=== PATIENT | male | born 1950 | race Caucasian/White ===

== ENCOUNTER 2020-06-04 08:44 | Inpatient (IN) | payer MEDICARE, MEDICAID ==
[2020-06-04] VITALS (19 sets, daily range): BP systolic 102–126; BP diastolic 50–78
[~2020-06-04] VITALS: Ht 185.4 cm; Wt 50.5 kg
--- NOTE | 2020-06-04 09:04 | NUR ---
Patient A&Ox 4. Patient given 4mg Morphine by [facility] right before transported. Patient resting comfortable. Awaiting MD arrival.
[2020-06-04] MEDS ORDERED: MONT10TA26 PO (09:36)
[2020-06-04] MEDS ORDERED: SERT100T PO (09:36)
[2020-06-04] MEDS ORDERED: PRED5TAB PO (09:36)
[2020-06-04] MEDS ORDERED: ATR0.5NEB NEB (09:36)
[2020-06-04] MEDS ORDERED: FLUT1DIS20 INH (09:36)
[2020-06-04] MEDS ORDERED: ASPI81TA52 PO (09:36)
[2020-06-04] MEDS ORDERED: ALB0.5UD IH (09:36)
[2020-06-04] MEDS ORDERED: ALBU18HF2 INH (09:36)
[2020-06-04] MEDS ORDERED: HYDROcodone/acetaminophen 5mg/325mg tablet PO PRN (10:25)
[2020-06-04] MEDS ORDERED: magnesium hydroxide 30ml (MOM) UD suspension PO PRN (10:25)
[2020-06-04] MEDS ORDERED: mag hydrox/Alum hydrox/simeth 30ml oral suspension PO PRN (10:25)
[2020-06-04] MEDS ORDERED: ondansetron/PF 4mg/2ml inj IV PRN (10:25)
[2020-06-04] MEDS ORDERED: acetaminophen 325mg tablet PO PRN ×2 (10:25)
[2020-06-04] MEDS ORDERED: morphine 2 MG/ML inj. syringe IV PRN (10:25)
[2020-06-04] MEDS ORDERED: albuterol 2.5 MG/3 ML nebule NEB PRN (10:30)
[2020-06-04] MEDS: dextrose 5%-1/2 normal saline 1,000 ML IV SCH ×2 (11:30→18:37)
--- NOTE | 2020-06-04 12:00 | NUR ---
Patient to GI lab.
[2020-06-04] MEDS ORDERED: DILT-94 PO (12:31)
[2020-06-04] MEDS ORDERED: levoFLOXACIN-Levaquin 500mg/D5 100 ML IV ONE (12:39)
[2020-06-04] MEDS ORDERED: iohexol 300 MG/1 ML 50ml polymer ONE (12:39)
[2020-06-04] MEDS ORDERED: fentaNYL/PF 50MCG/1 ML 2ML syringe ONE (12:39)
[2020-06-04] MEDS ORDERED: LIDOcaine Viscous 15ml cup ONE (12:39)
[2020-06-04] MEDS ORDERED: MIDAZolam 5mg/5ml vial ONE (12:39)
[2020-06-04] MEDS ORDERED: glucagon, human recombinant 1mg kit ONE (12:39)
--- NOTE | 2020-06-04 12:41 | NUR ---
Called down ER to receive report. Was notified that patient was in GI lab and that GI lab will call up to floor for report. [facility] primary RN "too busy" to give report at this time.
--- NOTE | 2020-06-04 13:04 | NUR ---
Received report from ED RN, Zeus @ 1300. Awaiting for patient to come up from GI lab. Patient will be placed in room 45B.
[2020-06-04] MEDS ORDERED: ipratropium 0.5 MG/2.5ML nebule NEB SCH (14:00)
[2020-06-04] MEDS ORDERED: albuterol 2.5 MG/3 ML nebule NEB SCH (15:00)
[2020-06-04] MEDS ORDERED: naloxone 0.4 mg/ml inj ONE (17:29)
[2020-06-04] MEDS ORDERED: flumazenil 0.1 mg/ml inj. IV ONE (17:29)
--- NOTE | 2020-06-04 17:58 | NUR ---
Received report from MOUNA Ledbetter. Awaiting patient arrival to room 345b.
--- NOTE | 2020-06-04 18:33 | NUR ---
Received patient to room 345B via gurney accompanied by x2 RN. VSS.
--- NOTE | 2020-06-04 18:37 | NUR ---
Problems reprioritized. Patient report given, questions answered & plan of care reviewed with MOUNA Hudson. Patient appears to be resting coomfortably with eyes closed, respirations even and unlabored. Call light in reach. Bed low and lokced.
[2020-06-04] MEDS: ipratropium/albuterol 3ml nebule NEB SCH (20:45)
[2020-06-04] MEDS: budesonide 0.5mg/2ml UD nebule IH SCH (20:45)
[2020-06-05] VITALS: BP 102/77
[2020-06-05] MEDS: ipratropium/albuterol 3ml nebule NEB SCH ×4 (02:13→19:52)
[2020-06-05] MEDS: dextrose 5%-1/2 normal saline 1,000 ML IV SCH ×2 (03:50→16:06)
[2020-06-05 04:00] VITALS: BP 128/88
[2020-06-05 06:02] LABS: BASOPHILS # (AUTO) 0.1 X10'3 (0-0.2); BASOPHILS % (AUTO) 0.3 % (0-1); EOSINOPHILS % (AUTO) 0 % (0-6); HEMATOCRIT 42.4 % (42.0-52.0); HEMOGLOBIN 13.8 g/dl (14.0-17.9); LYMPHOCYTES # (AUTO) 0.3 X10'3 (1.1-4.8); LYMPHOCYTES % (AUTO) 1.1 % (21-51); MEAN CORPUSCULAR HEMOGLOBIN 30.5 PG (27.0-31.0); MEAN CORPUSCULAR HGB CONC 32.5 g/dL (33.0-36.5); MEAN CORPUSCULAR VOLUME 93.6 FL (78-98); MEAN PLATELET VOLUME 8.7 FL (7.4-10.4); MONOCYTES # (AUTO) 2.3 X10'3 (0-0.9); MONOCYTES % (AUTO) 8.6 % (2-12); NEUTROPHILS # (AUTO) 24.1 X10'3 (1.8-7.7); PLATELET COUNT 176 X10'3 (140-440); RED BLOOD COUNT 4.53 X10'6 (4.70-6.10); RED CELL DISTRIBUTION WIDTH 15.6 % (11.5-14.5)
[2020-06-05 06:11] LABS: ALANINE AMINOTRANSFERASE 123 U/L (12-78); ALBUMIN 2.5 G/DL (3.4-5.0); ALKALINE PHOSPHATASE 472 IU/L (46-116); ANION GAP 5 (8-16); ASPARTATE AMINO TRANSFERASE 109 U/L (10-37); BILIRUBIN,TOTAL 8.7 MG/DL (0.1-1.0); BLOOD UREA NITROGEN 22 MG/DL (7-18); BUN/CREATININE RATIO 26.2 (5.4-32.0); CALCIUM 8.5 MG/DL (8.5-10.1); CHLORIDE 104 MMOL/L (99-107); CREATININE 0.84 MG/DL (0.60-1.10); GLUCOSE 115 MG/DL (70-104); POTASSIUM 4.4 MMOL/L (3.5-5.1); SODIUM 138 MMOL/L (135-145); TOTAL CARBON DIOXIDE 29.1 MMOL/L (24-32); eGFR 90 ML/MIN
[2020-06-05 06:22] LABS: WHITE BLOOD COUNT 26.7 X10'3 (4.5-11.0)
[2020-06-05 06:33] LABS: ALBUMIN/GLOBULIN RATIO 0.9 (1.1-1.5); TOTAL PROTEIN 5.4 G/DL (6.4-8.2)
--- NOTE | 2020-06-05 06:33 | NUR ---
Problems reprioritized. Patient report given, questions answered & plan of care reviewed with Cristin FREIRE. Addendum: 06/05/20 at 0633 by Becca Wheatley RN Amended: Links added.
--- NOTE | 2020-06-05 07:00 | NUR ---
PAGER ID: [phone] MESSAGE: Reynaldo Pulliam 345B : JOSE RAFAEL .critical WBC 26.7 thanks!
[2020-06-05 07:10] LABS: TOTAL CELLS COUNTED 100
[2020-06-05 07:11] LABS: ACANTHOCYTES 2+; ANISOCYTOSIS 1+; PLATELET ESTIMATE NORMAL
[2020-06-05 07:35] VITALS: BP 92/57
[2020-06-05] MEDS: sertraline 50mg tablet PO SCH (08:00)
[2020-06-05] MEDS: montelukast 10mg tablet PO SCH (08:00)
[2020-06-05] MEDS: predniSONE 5mg tablet PO SCH (08:00)
[2020-06-05] MEDS: aspirin 81mg tablet.DR PO SCH (08:00)
[2020-06-05] MEDS: budesonide 0.5mg/2ml UD nebule IH SCH ×2 (08:03→19:52)
[2020-06-05 08:25] VITALS: BP 101/70
[2020-06-05] MEDS ORDERED: albuterol 2.5 MG/3 ML nebule NEB PRN (09:15)
--- NOTE | 2020-06-05 09:15 | NUR ---
Page to Respiratory.. 345B Reynaldo Pulliam: RT order update. hes been changed to q4h. thanks!
[2020-06-05] MEDS: HYDROcodone/acetaminophen 10/325mg tab PO PRN ×2 (09:21→18:09)
[2020-06-05 12:35] VITALS: BP 104/64
--- NOTE | 2020-06-05 15:42 | NUR ---
Malnutrition consult: Pt reports 24-33 lb wt loss with decreased appetite per malnutrition risk screen with RN. Per H&P pt reports roughly 40 lb wt loss in unknown time frame. Pt seen at bedside reports previously weighing 165 lbs with weight "tapering off" over the last four years, current scaled weight is 111 lbs. This is non-significant wt loss of 33% in four years. Pt reports low appetite with poor PO intake over the last 1.5 weeks. Pt denies food preferences at this time and states he is uninterested in discussing food at this time, though pt does agree to Ensure Enlive TID. ONS to be sent pending MD approval in EMR. Pt denies desire for ONS continuation following discharge so declines ONS coupons at this time. Pt with visible severe fat and muscle wasting meeting criteria for malnutrition. Pt denies food allergies or difficulty chewing/swallowing. 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 LBM 06/03. Pt provided with RD contact information and encouraged to reach out. Will continue to follow closely. Recommendations: 1) Continue regular diet 2) Chocolate Ensure Enlive TID, pending MD approval in EMR 3) Monitor for s/s refeeding 4) Bowel care per rx 5) Scaled weights per rx Addendum: 06/05/20 at [address] Amended: Links added.
[2020-06-05 18:00] VITALS: BP 102/69
--- NOTE | 2020-06-05 18:25 | NUR ---
Problems reprioritized. Patient report given, questions answered & plan of care reviewed with MOUNA Pepe.
--- NOTE | 2020-06-05 18:30 | NUR ---
Patient in room [facility] 349. I have received report from KARRI FREIRE and had the opportunity to ask questions and assume patient care.
[2020-06-05] MEDS: levoFLOXACIN 500mg tablet PO SCH (20:10)
[2020-06-06] VITALS: BP 102/68
[2020-06-06] MEDS: dextrose 5%-1/2 normal saline 1,000 ML IV SCH ×2 (02:25→05:24)
[2020-06-06] MEDS: ipratropium/albuterol 3ml nebule NEB SCH ×4 (03:01→19:51)
[2020-06-06 05:10] LABS: BASOPHILS # (AUTO) 0.1 X10'3 (0-0.2); BASOPHILS % (AUTO) 0.4 % (0-1); EOSINOPHILS % (AUTO) 0 % (0-6); HEMATOCRIT 41.1 % (42.0-52.0); HEMOGLOBIN 13.3 g/dl (14.0-17.9); LYMPHOCYTES # (AUTO) 0.3 X10'3 (1.1-4.8); LYMPHOCYTES % (AUTO) 0.8 % (21-51); MEAN CORPUSCULAR HEMOGLOBIN 29.8 PG (27.0-31.0); MEAN CORPUSCULAR HGB CONC 32.4 g/dL (33.0-36.5); MEAN CORPUSCULAR VOLUME 92.2 FL (78-98); MEAN PLATELET VOLUME 9.2 FL (7.4-10.4); MONOCYTES # (AUTO) 2.6 X10'3 (0-0.9); MONOCYTES % (AUTO) 7.6 % (2-12); NEUTROPHILS # (AUTO) 30.7 X10'3 (1.8-7.7); NEUTROPHILS % (AUTO) 91.2 % (42-75); PLATELET COUNT 188 X10'3 (140-440); RED BLOOD COUNT 4.46 X10'6 (4.70-6.10); RED CELL DISTRIBUTION WIDTH 15.8 % (11.5-14.5)
[2020-06-06 05:13] LABS: WHITE BLOOD COUNT 33.7 X10'3 (4.5-11.0)
[2020-06-06 05:29] LABS: ALANINE AMINOTRANSFERASE 114 U/L (12-78); ALBUMIN 2.2 G/DL (3.4-5.0); ALKALINE PHOSPHATASE 556 IU/L (46-116); ANION GAP 8 (8-16); ASPARTATE AMINO TRANSFERASE 132 U/L (10-37); BILIRUBIN,TOTAL 10.2 MG/DL (0.1-1.0); BLOOD UREA NITROGEN 34 MG/DL (7-18); BUN/CREATININE RATIO 20.5 (5.4-32.0); CALCIUM 8.5 MG/DL (8.5-10.1); CHLORIDE 100 MMOL/L (99-107); CREATININE 1.66 MG/DL (0.60-1.10); GLUCOSE 103 MG/DL (70-104); SODIUM 134 MMOL/L (135-145); TOTAL CARBON DIOXIDE 25.6 MMOL/L (24-32); eGFR 41 ML/MIN
--- NOTE | 2020-06-06 05:30 | NUR ---
PAGED DR. BARTON AND TALKED TO HER, WAS INFORMED OF CRITICAL WBC 33.7 NO NEW ORDERS MADE.
[2020-06-06 05:31] LABS: ALBUMIN/GLOBULIN RATIO 0.8 (1.1-1.5); POTASSIUM 4.3 MMOL/L (3.5-5.1)
[2020-06-06 05:37] LABS: ANISOCYTOSIS 1+; PLATELET ESTIMATE NORMAL; TOTAL CELLS COUNTED 100
[2020-06-06 05:38] LABS: BURR CELLS 2+
--- NOTE | 2020-06-06 06:35 | NUR ---
Problems reprioritized. Patient report given, questions answered & plan of care reviewed with TAYLOR FREIRE.
--- NOTE | 2020-06-06 06:55 | NUR ---
Patient in room [facility] 349. I have received report from MOUNA Pepe and had the opportunity to ask questions and assume patient care.
[2020-06-06 08:00] VITALS: BP 94/63
[2020-06-06] MEDS: aspirin 81mg tablet.DR PO SCH (08:20)
[2020-06-06] MEDS: montelukast 10mg tablet PO SCH (08:20)
[2020-06-06] MEDS: predniSONE 5mg tablet PO SCH (08:21)
[2020-06-06] MEDS: sertraline 50mg tablet PO SCH (08:21)
[2020-06-06] MEDS: HYDROcodone/acetaminophen 10/325mg tab PO PRN (08:21)
[2020-06-06] MEDS: albuterol 2.5 MG/3 ML nebule NEB PRN ×2 (08:27→11:40)
[2020-06-06] MEDS: budesonide 0.5mg/2ml UD nebule IH SCH ×2 (08:27→19:51)
[2020-06-06 11:00] VITALS: BP 95/62
[2020-06-06] MEDS: levoFLOXACIN 500mg tablet PO SCH (11:27)
[2020-06-06] MEDS ORDERED: LORazepam 2 mg/ml vial IV PRN (12:05)
[2020-06-06] MEDS ORDERED: morphine 10mg/0.5ml (conc. morphine) oral syringe PO PRN (12:05)
[2020-06-06] MEDS ORDERED: acetaminophen 325mg tablet PO PRN (12:05)
[2020-06-06 12:30] VITALS: BP 74/36
[2020-06-06] MEDS: morphine 2 MG/ML inj. syringe IV PRN ×2 (13:26→20:49)
--- NOTE | 2020-06-06 13:53 | NUR ---
PAGER ID: [phone] MESSAGE: Nery Med/surg [id number]. Pt: Shasha. RM: 349-A Pt on comfort care. Do you want any meds changes? thanks
--- NOTE | 2020-06-06 14:21 | NUR ---
Tel. New orders to stop all medication and labs and continue with comfort care meds only.
--- NOTE | 2020-06-06 18:15 | NUR ---
Patient in room [facility] 349. I have received report from Nery FREIRE and had the opportunity to ask questions and assume patient care.
--- NOTE | 2020-06-06 18:26 | NUR ---
Problems reprioritized. Patient report given, questions answered & plan of care reviewed with MOUNA Fernando. Pt on comfort care. medicated with morphine x1. Pt slept peacefully most of the afternoon. refused to eat. No void this shift.
[2020-06-06] MEDS ORDERED: sennosides/docusate sodium tablet PO SCH (20:00)
[2020-06-06] MEDS ORDERED: lactobacillus rhamnosus 10,000 MMU CELLS/CAPSULE PO SCH (20:00)
[2020-06-06] MEDS ORDERED: docusate sod 100mg capsule PO SCH (20:00)
[2020-06-07] VITALS: BP 74/36
[2020-06-07] MEDS: ipratropium/albuterol 3ml nebule NEB SCH (03:00)
--- NOTE | 2020-06-07 05:22 | NUR ---
Dr. Mojica paged about pt being pronounced . will continue to monitor.
--- NOTE | 2020-06-07 05:33 | NUR ---
Called pt's daughter Shanna. Call went straight to voicemail. left voicemail for the pt to call the hospital back. will continue to monitor.
--- NOTE | 2020-06-07 05:33 | NUR ---
donor network called. referral number [id number], talked with
--- NOTE | 2020-06-07 05:34 | NUR ---
RN IS TO DOCUMENT YES TO ALL APPLICABLE AREAS Pronouncement of : 1. Time Physician Notified: 521 2. Date of : 06/07/2020 3. Time of : 504 4. DNR/Withdraw life support documented: yes 5. Monitor strip has been placed on chart: yes 6. Assessment process is of one-minute duration and includes following criteria: a) Patient is unresponsive to all stimuli: yes b) Pupils fixed and non-reactive: yes c) Auscultation of precordium reveals absence of heart tones: yes d) Auscultation of lungs reveals absence of breath sounds: yes e) Absence of blood pressure / all vital signs: yes f) QRS complexes are not present on monitor / EKG strip: yes g) Pacer spikes without capture: n/a 4. Comments: 0430 hourly rounding done on pt, pt resting comfortable. went in to change pt's water and reposition. pt unresponsive with no heart or breath sounds. began process of pronouncing pt's and 050 pt pronounced as .
--- NOTE | 2020-06-07 06:00 | NUR ---
Student documentation: I have reviewed and agree with all interventions, assessments performed and documented by MARI ELLIOTT. Student Medication Administration: For this medication-pass time frame, all medication were reviewed, dispensed, administered and documented per hospital policy by MARI ELLIOTT.
--- NOTE | 2020-06-07 06:43 | NUR ---
Problems reprioritized. Patient report given, questions answered & plan of care reviewed with Nichelle FREIRE.
--- NOTE | 2020-06-07 06:45 | NUR ---
Patient in room [facility] 349A. I have received report from MOUNA JONES and had the opportunity to ask questions and assume patient care.
--- NOTE | 2020-06-07 09:10 | NUR ---
ATTEMPTED TO CALL DAUGHTER LEFT A MESSAGE
--- NOTE | 2020-06-07 10:30 | NUR ---
2ND ATTEMPT TO CALL DAUGHTER LEFT A VOICE MESSAGE, CALLED [facility] FOR TRANSPORT
[2020-06-07] MEDS ORDERED: levoFLOXACIN 250mg tablet PO SCH (11:00)
--- NOTE | 2020-06-07 13:30 | NUR ---
A CALL TO [facility] WAS MADE AND FERMENTER SAID HE WOULD BE HERE IN 20 TO 30 MINS
--- NOTE | 2020-06-07 14:15 | NUR ---
[facility] CAME TO [facility] PATIENT, ALL [facility]ONG[facility] WERE SENT WITH TRANSPORT AND ALL PAPERWORK SIGNED. TALKED TO DAUGHTER SHE AGREED TO HAVE [facility] PATIENT'S MORTUARY AND WAS GIVEN THEIR CONTACT INFORMATION. WAS PAGED ABOUT SPEAKING WITH DAUGHTER.
== END 2020-06-07 05:30 | disposition expired | DRG 435 ==
LOC: ER 08:45 → ED HOLD 10:21 → SUR 3N 13:12
PROVIDERS: ADMIT Internal Medicine; ATTEND Internal Medicine
PROC: 0FJB8ZZ Inspection of Hepatobiliary Duct, Via Natural or Artificial Opening Endoscopic (ICD-10-PCS; principal; 2020-06-04)
DX: C25.9 Malignant neoplasm of pancreas, unspecified (principal); K83.1 Obstruction of bile duct; J96.11 Chronic respiratory failure with hypoxia; C79.51 Secondary malignant neoplasm of bone; C78.7 Secondary malignant neoplasm of liver and intrahepatic bile duct; Z66 Do not resuscitate; Z51.5 Encounter for palliative care; F17.290 Nicotine dependence, other tobacco product, uncomplicated; J44.9 Chronic obstructive pulmonary disease, unspecified; F32.9 Major depressive disorder, single episode, unspecified; M54.2 Cervicalgia; Z79.899 Other long term (current) drug therapy
CPT/HCPCS: 36415; 43260; 80053; 85007; 85025; 87081; 94640; 94760; 96374; 99152; 99153; 99285; A4620; C1769; G0378; J1610; J1956; J2250; J2270; J2310; J2405; J3010; J3490; J7040; J7512; J7626; Q9967